=== PATIENT | male | born 1935 | race Caucasian/White ===

== ENCOUNTER 2016-06-22 21:45 | Observation (INO) | payer MEDICARE, OTHER ==
[~2016-06-22] VITALS: Ht 177.8 cm; Wt 93.7 kg
[~2016-06-22 21:45] MED LIST: ASPI325T32 PO; AZIT250T4 PO; BROM2.5T2 PO; CLOP75TA28 PO; EZET10TA PO; GABA600T2 PO; HYDR20TA2 PO; LATA2.5D6 RIGHT_EYE; LEVO75TA4 PO; OMEG1CAP2 PO; TAM75UDCAP PO; TAMS0.4C98 PO
[2016-06-22 21:47] VITALS: PULSE 50; RESP 16; O2SAT 94
[2016-06-22 22:00] VITALS: BP 118/66; PULSE 114; RESP 18; O2SAT 96
[2016-06-22 22:15] VITALS: BP 104/59; PULSE 66; RESP 14; O2SAT 96
[2016-06-22 22:17] LABS: BASOPHILS % (AUTO) 0.5 % (0-3); EOSINOPHILS % (AUTO) 2.5 % (0-5); MONOCYTES % (AUTO) 7.9 % (4-12); Mean Corpuscular Hemoglobin 31.6 pg (27.0-35.0); Mean Corpuscular Volume 91.6 fL (81-100); NEUTROPHILS % (AUTO) 48.7 % (40-74); Platelet Count 148 bil/L (150-400)
[2016-06-22] MEDS ORDERED: 0.9% Sodium Chloride 1,000 ML IV ONE (22:35)
[2016-06-22 22:38] LABS: TROPONIN T 0.01 ug/L (0.0-0.011)
--- NOTE | 2016-06-22 22:44 | ED.REPORT ---
HPI-Chest Pain 40 and Over Date of Service Jun 22, 2016 ED Provider: West Escobar MD Pt is an 80 year old male with a hx of CAD, HTN, afib, TIA and cardiac stents placed 8 months ago presenting to the ED complaining of chest pain and rapid heart rate onset 1 hour ago now resolved. He reports previous similar symptoms one time about 1 year ago. His does not report that the pt looks more pale than normal. He denies hx of problems with his aorta or being on blood thinners. Pt took 2 Aspirin and 1 nitro prior to arrival. Nursing Notes Stated Complaint: CHEST PAIN Chief Complaint: Chest Pain Nursing Notes Reviewed: Yes Allergies: Coded Allergies: dabigatran etexilate (Verified Allergy, Severe, headache, 06/23/16) gemfibrozil (Verified Allergy, Intermediate, 06/23/16) pt does not remember this as an allergy atorvastatin (Verified Allergy, Mild, 06/23/16) Scheduled Aspirin (Aspirin) 325 Mg Tablet.dr 325 MG PO AM Bromocriptine Mesylate (Bromocriptine Mesylate) 2.5 Mg Tablet 2.5 TAB PO DAILY Clopidogrel (Clopidogrel) 75 Mg Tablet 75 MG PO DAILY Ezetimibe (Zetia) 10 Mg Tablet 10 MG PO DAILY Gabapentin (Gabapentin) 600 Mg Tablet 600 MG PO HS Hydrocortisone (Hydrocortisone) 20 Mg Tablet 20 MG PO AM Latanoprost (Latanoprost) 2.5 Ml Drops 1 GTT RIGHT_EYE HS Levothyroxine (Levothyroxine) 75 Mcg Tablet 75 MCG PO AM [place]-3 Acid Ethyl Esters (Lovaza) 1 Gm Capsule 1 GM PO BID Tamsulosin (Flomax) 0.4 Mg Capsule 0.4 MG PO BID General Time Seen by MD: 21:55 Chief Complaint Chest pain Hx Obtained From: Patient Arrived By: Walk-in Sudden in Onset?: Yes Onset Occurred: 1 - 4 hours ago Symptom Duration: 1 - 4 hours Quality: Painful Radiation: : Does not radiate Migration/Movement: Reports: None Severity: Current: No pain currently Severity: Maximum: Moderate Recent Healthcare: No recent doctor visit, No recent hospitalization, Previous surgery Similar Sx Previous: Yes Risk Factors )( CAD Risk Stratification Hypertension Known CAD Risk factors reviewed )( TAD Risk Stratification Hypertension Risk factors reviewed Past Medical History Past Medical History CAD Hypertension Atrial fibrillation TIA Tachy dang syndrome Hx pituitary adenoma Low back pain Cataracts Past Surgical History ankle replacement cardiac catheterization cardiac stents placed 8 months ago Reports: Appendectomy Smoking History Former Smoker Social History Alcohol Use: "Social" Drug Use: Denies drug use Ambulatory Status Independent Review of Systems Respiratory: Denies: Shortness of breath, Wheezing Cardiovascular: Reports: Chest pain GI: Denies: Vomiting Complete sys rev & neg: except as marked. Physical Exam Initial Vital Signs Vital Signs (First) Date Time Temp Pulse Resp B/P Pulse Ox O2 Delivery O2 Flow Rate FiO2 06/22/16 21:47 36.1 50 16 94 Room Air 06/22/16 22:00 118/66 Initial VS: Reviewed, Vital signs normal Head / Eyes: Atraumatic, Normocephalic, PERRL ENT: Mucous membranes moist, Conjunctiva normal, No scleral icterus Neck: Supple, Non-tender, Full range of motion Skin: Warm, Dry, No cyanosis Neurologic: Alert, Oriented, Nonfocal Psychiatric: Mood/affect normal, Behavior normal, Normal thought content General/Constitutional: Awake, Alert, No acute distress Appearance / Presentation: Positive: Pale Respiratory / Chest: No respiratory distress Cardiovascular: Heart rate NL, Regular rhythm, Heart sounds NL, No murmurs Good femoral pulses Abdomen: Atraumatic, Soft, Non-tender, No palpable mass, No pulsatile mass Upper Extremity / MS: Atraumatic, Full range of motion, Neurologic intact, Vascular intact Extremities cool but not cold or clammy. Interpretation & Diagnostics Lab Results Interpretation Result Diagram: 06/22/16219906/22/16 220 Test 06/22/16 22:00 White Blood Count 8.3th/mm3 (3.8-10.1) Red Blood Count 4.53mil/mm3 (4.40-5.80) Hemoglobin 14.3g/dL (13.8-17.2) Hematocrit 41.5% (41.0-50.0) Mean Corpuscular Volume 91.6fL (81-100) Mean Corpuscular Hemoglobin 31.6pg (27.0-35.0) Mean Corpuscular Hemoglobin Concent 34.5% (32.0-37.0) Red Cell Distribution Width 14.1% (12.3-15.4) Platelet Count 148bil/L (150-400) Neutrophils (%) (Auto) 48.7% (40-74) Lymphocytes (%) (Auto) 40.3% (14-46) Monocytes (%) (Auto) 7.9% (4-12) Eosinophils (%) (Auto) 2.5% (0-5) Basophils (%) (Auto) 0.5% (0-3) Prothrombin Time 10.7sec (8.1-12.5) Prothromb Time International Ratio 1.00ratio Sodium Level 141mEq/L (134-144) Potassium Level 4.6mEq/L (3.5-5.2) Chloride Level 102mEq/L (97-108) Carbon Dioxide Level 25mmol/L (18-29) Blood Urea Nitrogen 18mg/dL (8-27) Creatinine 1.28mg/dL (0.76-1.27) Estimat Glomerular Filtration Rate 57mL/min (>59) Glucose Level 114mg/dL (60-99) Calcium Level 9.2mg/dL (8.5-10.1) Magnesium Level 1.9mg/dL (1.6-2.6) Total Bilirubin 0.3mg/dL (0.0-1.2) Aspartate Amino Transf (AST/SGOT) 23U/L (0-50) Alanine Aminotransferase (ALT/SGPT) 14U/L (0-44) Alkaline Phosphatase 38U/L (25-160) Troponin T 0.010ug/L (0.0-0.011) Total Protein 7.0g/dL (6.4-8.4) Albumin 4.2g/dL (3.4-5.0) Thyroid Stimulating Hormone (TSH) 0.214uIU/mL (0.450-4.500) Free Thyroxine 0.89ng/dL (0.82-1.77) Hold Kennedy Top Tube Received (Received) Lab values outside NL range: no clinical significance. Lab Results Interpretation: No anemia ECG Interpretation ECG Interpretation: Atrial fibrillation flutter. Rate 118. Time: 21:58 Interpreted by: ED physician ECG Interpretation: Nonspecific intraventricular conduction delay. Nonspecific T abnormalities, lateral leads. Time: 22:08 Interpreted by: ED physician Normal ECG Interpretation: Normal rate (61), Normal sinus rhythm ECG Interpretation: Old inferior infarct. Rate 58. Time: 22:47 Interpreted by: ED physician Normal ECG Interpretation: Normal sinus rhythm X-Ray Chest Interpretation Chest Xray Interpretation: Normal chest x ray. Widening mediastinum. Interpretation / Wet Read by: Wet read ED physician CT Abd / Pelvis Interpretation CONCLUSION: No acute vascular process. Areas of parenchymal scarring in both kidneys. Correlate with history. Small mural nodule in the bladder on the left. Cystoscopy to exclude an endothelial tumor may be indicated. Mild prostatic enlargement. This report was transmitted to the emergency room at 06/22/2016 - 11:38:34 PM PST. Re-Eval/Medical Decision Med Decision/Clinical Course 80-year-old male who presents with rapid heart rate and chest pain. He was originally quite pale. He converted to sinus rhythm and his chest pain went away. However he dropped his pressure into the 40-60 range momentarily. He was given fluids which brought brought it up into the mid 80s. He was typed and crossed for 2 units of packed cells but his H&H came back normal and there was no evidence of blood loss. CT angiogram of the chest abdomen pelvis was done which showed no abnormalities of the great vessels. He does have a possible bladder tumor. His blood pressure stabilized in the 100 range without pressors. His heart rate went down as low as the high 30s on a couple of occasions, asymptomatic. This case was discussed with Dr. Hercules and he will be admitted to the hospitalist service. Please see patient's chart for details. Time of Eval: 22:41 Patient Status: Condition improved Re-Evaluation/Progress Note: BP is 66/43, HR is 59. Time of Eval: 23:31 Patient Status: Condition improved Re-Evaluation/Progress Note: BP: 84/59 HR: 50 Time of Eval: 23:57 Patient Status: Condition improved Re-Evaluation/Progress Note: Discussed plan for admission. Pt understands and agrees. Consultation : Referral / Consult Name: Jac Hercules MD Consulted With: Hospitalist Call Returned at: 00:18 Icebox Man: Will see patient, Agrees with plan, Accepts admit Counseled Regarding: Diagnosis, Lab results, Need for follow-up, When/why to return to ED Discharge & Departure Primary Impression: Atrial fibrillation Atrial fibrillation type: paroxysmal Qualified Code: I48.0 - Paroxysmal atrial fibrillation Additional Impressions: Hypotension Hypotension type: unspecified hypotension type Qualified Code: I95.9 - Hypotension, unspecified Bradycardia Disposition: ADMITTED TO HOSPITAL Discharge Condition All VS Reviewed: Yes Condition: Improved Referrals: Ellen Hernandez (PCP) Crit Care Except Billable Proc Time Spent: 30-74 minutes Services Performed: Patient management by me, Time spent at bedside, Reviewing test results, Reviewing imaging, Discussing patient care, Documentation in record Critical Care Notes: 80-year-old male with rapid heart rate followed by bradycardia into the 30s. He was hypotensive and required aggressive fluid resuscitation but no pressors. He was admitted to the [facility] for further evaluation. Scribe Attestation Portions of this note were transcribed by Estelita Zuniga. I, Dr. Escobar personally performed the history, physical exam and medical decision-making; I reviewed and confirmed the accuracy of the information in the transcribed note. Signed by: Ernie Uribe, 06/23/2016 and 0021. copies to: Ellen Hernandez Howard L MD Jun 22, 2016 22:44 ESTELITA ZUNIGA Jun 22, 2016 22:51
[2016-06-22 22:50] LABS: Magnesium 1.9 mg/dL (1.6-2.6)
[2016-06-23] VITALS (9 sets, daily range): BP systolic 95–127; BP diastolic 54–67; PULSE 45–52; RESP 13–17; O2SAT 94–99
[2016-06-23] MEDS ORDERED: Ondansetron 2 mg/mL 2 mL Inj IVPUSH PRN (00:25)
[2016-06-23] MEDS ORDERED: Polyethylene Glycol (PEG) 17 Gm Powder PO PRN (00:25)
[2016-06-23] MEDS ORDERED: Alum-Mag Hydrox-Simeth 30 mL Suspension PO PRN (00:25)
[2016-06-23] MEDS: 0.9% Sodium Chloride 1,000 ML IV SCH ×2 (00:45→10:23)
[2016-06-23 03:50] LABS: APPEARANCE,URINE CLEAR (CLEAR,HAZY); COLOR,URINE YELLOW (YELLOW); OCCULT BLOOD,URINE MODERATE (NEGATIVE); UROBILINOGEN,URINE NORMAL (NORMAL)
--- NOTE | 2016-06-23 04:18 | PCM.HPMED ---
Subjective Date of Service Jun 23, 2016 Primary Provider: Admitting Physician: Primary Care Physician: Ellen Hernandez Attending Physician: Admit Status: From the Emergency Department, 23-Hour Observation, Remote Telemetry Chief Complaint: Chest pain History of Present Illness: Reuben Powell is an 80 year old male with Coronary artery disease s/p stenting , Hypertension, Chronic Atrial fibrillation presenting to [facility] emergency department complaining of chest pain and rapid heart rate onset 1 hour ago now resolved. Patient described chest pain as left sided, pressure. 8/10 intensity without any radiation. Denies any diaphoresis, nausea or dyspnea. Some similarity to his previous heart attacks. Pt took 2 Aspirin and 1 nitro prior to arrival with some relief. He reports previous similar symptoms one time about 1 year ago. His does report that the pt looks more pale than normal. He reports compliance with medications and closely follows up with Dr Castro. Case discussed with Dr Escobar, imaging showed no dissection. Weird rhythm changes noted with tachycardia then dang cardia with hypotension. Patient denies any persistent chest pain since arriving. Review of Systems: Pertinent positives as noted in HPI. All other systems were reviewed and are negative Allergies Coded Allergies: dabigatran etexilate (Verified Allergy, Severe, headache, 06/23/16) gemfibrozil (Verified Allergy, Intermediate, 06/23/16) pt does not remember this as an allergy atorvastatin (Verified Allergy, Mild, 06/23/16) Home Medications From [facility], not yet confirmed Reuben Powellmont. [id number] 06/20/2016 08:45 AM Page: 05/16 Aspir-81 81 mg tablet,delayed release take 1 tablet by oral route every day bromocriptine 2.5 mg tablet take 1 tablet by oral route every day with food Cialis 20 mg tablet take 1 tablet by oral route every day clopidogrel 75 mg tablet take 1 tablet by oral route every day desonide 0.05 % topical cream apply by topical route 2 times every day sparingly and rub gently into the affected area(s) Flomax 0.4 mg capsule TAKE 1 CAPSULE BY MOUTH TWICE A DAY gabapentin 600 mg tablet take 1 tablet by oral route every night at bedtime hydrocortisone 20 mg tablet take 1 tablet by oral route every day with food levothyroxine 75 mcg tablet take 1 tablet by oral route every day [place]-3 2 twice a day Viagra 100 mg tablet take 1 tablet by oral route every day as needed approximately 1 hour before sexual activity Xalatan 0.005% 1 drop in eye in the evening Zetia 10 mg tablet take 1 tablet by oral route every day for high cholesterol. PMH Paroxysmal atrial fibrillation ASCVD, heart cath 2010 50-60% stenosis RCA, cath 07/2015 80% and 90% LAD stenosis , 80% circumflex stenosis, RCA occluded proximally Hypertension Hyperlipidemia H/o pituitary adenoma BPH Hypothyroidism Glaucoma . Surgical History Cardiac cath: complex intervention at [facility] to revascularize occluded right coronary artery. 3.5 x 38 mm Synergy drug-eluting stent was deployed distally, 3.5 x 38 mm Synergy drug-eluting stent was deployed in the midportion of right coronary artery and 3.5 x 12 mm Synergy stent was deployed in the proximal right coronary artery. 4 mm balloon was used to post dilate proximally. 2 mm balloon was used to intervene on right posterior lateral branch. Family History Brother: passed at age 81 d/t blood clots Social History Hx Alcohol Use: Yes (very little ) Hx Substance Use: No Hx Tobacco Use: Yes (Quit "many many years ago") Smoking Status: Former Smoker Exam Vital Signs Vital Sign - Last Date Time Temp Pulse Resp B/P Pulse Ox O2 Delivery O2 Flow Rate FiO2 06/23/16 00:05 45 17 95/54 96 Room Air 06/22/16 21:47 36.1 Intake and Output 06/22/16 06/22/16 06/23/16 Cumulative From/Thru 15:00 23:00 07:00 06/22/16 21:47 - 06/22/16 23:17 Intake Total 1000 ml 1000 ml Balance 1000 ml 1000 ml Intake IV Total 1000 ml 1000 ml Exam General: Alert, Oriented X3, Cooperative, No acute Distress Eyes: PERRLA, Scleral Anicteric Mouth: Mouth Normal, Mucous Membranes Moist/[place] Neck: Supple, no Thyromegaly, trachea central. Chest & Lungs: Clear to auscultation & percussion, No adventitious breath sounds, no crackles, no wheeze Cardiovascular: Normal S1, Normal S2, No Murmurs/Rubs/Gallops, irregularly irregular, (No JVD, no peripheral edema) Pulses: Radial (present and equal), Dorsalis Pedi (present and equal) Abdomen: Soft, Non-tender, Non-distended, Normoactive bowel tones. Musculoskeletal: Unremarkable. Normal range of motion, no swollen or erythematous joints Extremities: No edema, no cyanosis, no clubbing. Skin: No rashes. Warm and dry, no erythematous areas Neurological: Grossly neurologically intact, Normal Speech, Sensation Intact Lymphatic: Lymph nodes Cervical and Axillary not palpable. Lab and Diagnostics Labs Laboratory Tests Test 06/22/16 22:00 White Blood Count 8.3th/mm3 (3.8-10.1) Red Blood Count 4.53mil/mm3 (4.40-5.80) Hemoglobin 14.3g/dL (13.8-17.2) Hematocrit 41.5% (41.0-50.0) Mean Corpuscular Volume 91.6fL (81-100) Mean Corpuscular Hemoglobin 31.6pg (27.0-35.0) Mean Corpuscular Hemoglobin Concent 34.5% (32.0-37.0) Red Cell Distribution Width 14.1% (12.3-15.4) Platelet Count 148bil/L (150-400) Neutrophils (%) (Auto) 48.7% (40-74) Lymphocytes (%) (Auto) 40.3% (14-46) Monocytes (%) (Auto) 7.9% (4-12) Eosinophils (%) (Auto) 2.5% (0-5) Basophils (%) (Auto) 0.5% (0-3) Prothrombin Time 10.7sec (8.1-12.5) Prothromb Time International Ratio 1.00ratio Sodium Level 141mEq/L (134-144) Potassium Level 4.6mEq/L (3.5-5.2) Chloride Level 102mEq/L (97-108) Carbon Dioxide Level 25mmol/L (18-29) Blood Urea Nitrogen 18mg/dL (8-27) Creatinine 1.28mg/dL (0.76-1.27) Estimat Glomerular Filtration Rate 57mL/min (>59) Glucose Level 114mg/dL (60-99) Calcium Level 9.2mg/dL (8.5-10.1) Magnesium Level 1.9mg/dL (1.6-2.6) Total Bilirubin 0.3mg/dL (0.0-1.2) Aspartate Amino Transf (AST/SGOT) 23U/L (0-50) Alanine Aminotransferase (ALT/SGPT) 14U/L (0-44) Alkaline Phosphatase 38U/L (25-160) Troponin T 0.010ug/L (0.0-0.011) Total Protein 7.0g/dL (6.4-8.4) Albumin 4.2g/dL (3.4-5.0) Hold Kennedy Top Tube Received (Received) Result Diagram: 06/22/16219906/22/162199 X-Rays, CTs and MRIs X-Ray Chest Interpretation 06/22 Chest Xray Interpretation: Normal chest x ray. Interpretation / Wet Read by: CT Abd / Pelvis Interpretation 06/22 CONCLUSION: No acute vascular process. Areas of parenchymal scarring in both kidneys. Correlate with history. Small mural nodule in the bladder on the left. Cystoscopy to exclude an endothelial tumor may be indicated. Mild prostatic enlargement. Assessment & Plan Reuben Andre is an 80 year old male with Coronary artery disease s/p stenting , Hypertension, Chronic Atrial fibrillation presenting to [facility] emergency department complaining of chest pain and palpitations. 1. Atrial fibrillation with rapid ventricular response with bradycardia. Present on admission -patient with history of paroxysmal atrial fibrillation however has not had difficulties since 2010. Tachy dang syndrome is a possibility. Patient no currently on any beta tawana due to bradycardia. Thyroid disease could cause both tachy and bradycardia - monitor on telemetry - trending troponin overnight - checking TSH - complete echo in the morning - consider Cardiology (EPS) consultation if continues to have rhythm changes overnight 2. Acute Hypotension. Present on admission suspect Hypovolemia given improvement with IV fluids bolus. I wonder if the patient is using nitro with his Cialis which may cause some drop in Blood pressure. Patient on chronic steroids with risk for Adrenal insufficiency. No evidence of infection - continue IV fluids - avoid antihypertensive at least for tonight - consider random cortisol levels if indicated 3. Acute Chest pain. Present on admission Likely related to tachycardia which is now resolved - trending troponin 4. Coronary artery Disease s/p drug eluting stent - continue Aspirin and Plavix for antiplatelet therapy - continue Zetia (allergic to Atorvastatin) 5. Hyperlipidemia No evidence of liver dysfunction - continue Zetia 6. Pituitary adenoma with testicular hypofunction, Chronic - continue Bromocriptine - continue Hydrocortisone 20 mg daily, no indication for stress dose steroids - recommend follow up with Endocrinology as outpatient 7. Hypothyroidism - continue Synthroid 75 mcg daily, question compliance - checking TSH 8. Benign Prostatic Hypertrophy with outflow obstruction - continue Flomax - Acetaminophen as needed for mild pain/fever/headache - Bowel regimen as needed - Antiemetic as needed Patient admitted under inpatient status with expected length of stay > 2 midnights for severity of present symptoms, complexities of treatment plan and risk for adverse event . Resuscitation Status: CPR: Attempt Resuscitation Jac Hercules MD Jun 23, 2016 00:34
--- NOTE | 2016-06-23 05:40 | NUR ---
Admit/Med Rec Pt admitted to room 2000 around 0200, report from ED RN, lex MD at room during admission. Pt able to transfer self from gurney to bed by scooting, understands he is to be bedrest at this time. Pt denied any chest pain and appeared comfortable. Pt oriented to room and able to answer admission questions. Tele SBrady 40s. Pt denies symptoms. SBP low 100s. Med rec done via external med Hx as pt has vague idea of names of meds and does not know doses. Pt states will bring updated med list in the morning to confirm medications.
--- NOTE | 2016-06-23 05:45 | NUR ---
Tele Tele continues mostly SB 40s w/ occasional dips to high 30s, not sustaining. Pt denies chest pain or symptoms from bradycardia. Pt remains bedrest.
--- NOTE | 2016-06-23 07:18 | DRSVH ---
PROCEDURE: X-RAY CHEST ONE VIEW, PORTABLE ([id number]) INDICATIONS: chest pain TECHNIQUE: One view of the chest was acquired. COMPARISON: [facility], CR, XR CHEST 1VW (PORTABLE), 05/09/2016, 18:19. FINDINGS: Surgical changes and devices: None. Lungs and pleura: No pleural effusions or pneumothorax. Lungs are clear. Mediastinum: Mediastinal contours appear normal. Heart size is normal. Bones and chest wall: No suspicious bony lesions. Overlying soft tissues appear unremarkable. IMPRESSION: No acute disease Dictated by: Jarett Hawthorne M.D. on 06/23/2016 at 7:17 Approved by: Jarett Hawthorne M.D. on 06/23/2016 at 7:18
--- NOTE | 2016-06-23 07:42 | DRSVH ---
PROCEDURE: CT ANG CHEST/ABD/PEL W/WO CIBTRAST ([id number]) INDICATIONS: chest pain, hypotension TECHNIQUE: Precontrast 5 mm thick sections acquired from the lung apices to the iliac crests. After the adminis tration of intravenous contrast, 3 mm thick sections again acquired from the lung apices to the iliac crests. 3-dimensional maximum intensity projection (MIP) oblique sagittal and coronal reformats wer e then acquired, and/or 3-dimensional volume rendering reformats. For radiation dose reduction, the following was used: automated exposure control. COMPARISON: None. FINDINGS: Image quality: Excellent. AORTA: No evidence of aneurysm or dissection. No periaortic hematoma identified. CHEST: Lungs and pleura: No acute consolidation. There is scarring/atelectasis No pleural effusions or pne umothorax. Central and peripheral airways are patent and normal in caliber. Mediastinum: Heart size is mildly enlarged. No pericardial effusion. No mediastinal or hilar adeno peyton by size criteria. Central pulmonary arteries are normal in size. No evidence of pulmonary embo lism. Esophagus is normal in caliber. No hiatal hernias. Bones and chest wall: No axillary adenopathy by size criteria. Thyroid gland negative. No suspicio us bony lesions. Age-indeterminate lower thoracic spine compression fractures. ABDOMEN: Vasculature: Celiac trunk and mesenteric arteries are patent. Renal arteries are also patent. Solid organs: Liver and spleen are normal in size. There are nonspecific hepatic calcifications. Ga llbladder unremarkable. Biliary system is non dilated. Pancreas enhances normally. No adrenal nodu les. Bilateral renal scarring and atrophy. No hydronephrosis. Peritoneum and bowel: No free fluid or air. Bowel loops are normal in caliber and wall thickness. Appendix not definitely visualized. Nodes and vessels: No retroperitoneal or mesenteric adenopathy by size criteria. Inferior vena cava is normal in morphology. Bones: No suspicious bony lesions. No vertebral body compression fractures. Miscellaneous: No ventral hernias. PELVIS: 5 mm left bladder wall nodule noted. No pelvic lymphadenopathy. Rectum grossly unremarkable. Prostate mildly enlarged IMPRESSION: 5 mm left bladder wall nodule. This could represent early bladder carcinoma. Recommend further assess ment with cystoscopy as clinically warranted. Elsewhere, no aortic aneurysm or dissection. Bilateral renal scarring and atrophy. Mild enlarged prostate. No acute pulmonary consolidation Additional chronic and incidental findings as above. Dictated by: Jarett Hawthorne M.D. on 06/23/2016 at 7:28 Approved by: Jarett Hawthorne M.D. on 06/23/2016 at 7:42
[2016-06-23] MEDS ORDERED: OXYM30SP18 NS (10:01)
[2016-06-23] MEDS ORDERED: ASPI-973 PO (10:01)
--- NOTE | 2016-06-23 10:25 | NUR ---
Social Work Note: Initial Assessment Data& Assessment: EMR reviewed. SW met with pt and pt Milla ([phone]) regarding discharge planning, SW role explained. SW phone number provided on pt whiteboard. Reuben Duvall is a 80 year old male under observation beginning today 06/23/2016 for AFIB. Pt has Medicare and [facility] Supplemental insurance coverage. Pt PCP is Ellen Hernandez MD. Pt lives in [place] with his and is independent at baseline. Pt and pt live in a one story home with one step to enter the home. Pt drives and does not require any DME at baseline. Pt has never had Home Health services and has never been to a SNF in the past. Pt is a with the [facility] but is not service connected. Pt does not have LTC insurance. Pt has DPOA paperwork completed at home, SW requested pt provide the hospital with a copy when possible. Pt plans to transport pt home when medically ready. Pt and pt denies any other needs at this time. SW to continue to follow if any needs arise. Plan: Anticipated discharge home via POV when medically ready. Pt and pt denies any other needs at this time. SW to continue to follow if any needs arise. JULEE Galicia Addendum: 06/23/16 at 1058 by EDI GOLDMAN Amended: Links added.
[2016-06-23] MEDS ORDERED: Hydrocortisone 10 mg Tablet PO SCH (11:40)
--- NOTE | 2016-06-23 11:44 | NUR ---
ROLF explained, signed. Copy of ROLF and Medicare self administered medications given to pt.
--- NOTE | 2016-06-23 12:09 | DRSVH ---
[facility] [address] [place] [address] Echocardiogram Report Name: HUGH IRVIN BStudy Date: 06/23/2016 Height: 70 in Hospital Exam Location: [facility] Weight: 207 lb Gender: Male BSA: 2.1 m2 : 1935 Age: 80 yrs BP: 117/64 mmHg Reason For Study: HYPOTENSION Performed By: Zeke Vazquez Referring Physician: MELITON EMERY Interpretation Summary 1) Normal left ventricular thickness, size, wall motion, and systolic function (EF 60-65%). 2) Normal right ventricular size and function. 3) Mild to moderate mitral regurgitatoin present. 4) Mildly dilated ascending aorta (diameter 4cm). 5) No significant change compared to the prior echo dated 07/11/2015. Procedure: A two-dimensional transthoracic echocardiogram with color flow and Doppler was performed. The study quality was technically adequate. Comparison is made with the echocardiogram of 07/11/15. The patient was in sinus bradycardia with heart rates between 45-56 bpm during the exam. Left Ventricle: The left ventricle is normal in size. There is normal left ventricular wall thickness. The ejection fraction is estimated to be 60-65%. There are no focal wall motion abnormalities. Assessment of diastolic parameters indicates a relaxation abnormality of the left ventricle, consistent with normal filling pressures. Right Ventricle: The right ventricle grossly appears normal in size with probable normal systolic function. Atria: The left atrium is moderately dilated. The right atrium is mildly dilated. The interatrial septum is intact with no evidence for an atrial septal defect. Mitral Valve: The mitral valve leaflets are slightly calcified. There is moderate mitral annular calcification. There is mild to moderate mitral regurgitation. Aortic Valve: The aortic valve is trileaflet. The aortic valve is mildly calcified. There is no aortic valve stenosis. No aortic regurgitation is present. Tricuspid Valve: The tricuspid valve is normal. There is mild tricuspid regurgitation. The right ventricular systolic pressure is estimated at 26 mmHg assuming a right atrial pressure of 8 mm Hg. Pulmonic Valve: The pulmonic valve leaflets are thin and pliable; valve motion is normal. There is a trace or physiologic amount of pulmonic regurgitation. Great Vessels: The aortic root is normal size. The ascending aorta is mildly enlarged. The pulmonary artery is normal size. The IVC is dilated (diameter is greater than 2.1 cm) yet it collapses greater than 50% with a sniff. This suggests a right atrial pressure of 8 mm Hg. Pericardium/ Pleura There is no pericardial effusion. There is no pleural effusion. MMode/2D Measurements & Calculations LVIDd: 4.7 cm RA long axis LVOT diam: 2.4 cm LVIDs: 3.6 cm LA A2 area: 23.8 cm AoV Opening FS: 25.1 % LA A4 area: 23.6 cm RA area EPSS: 0.48 cm LA length (vol) Ao root diam IVSd: 1.0 cm : 19.5 cm LVPWd: 0.89 cm LA vol: 85.1 ml RA vol asc Aorta Diam LA vol index : 62.2 ml RA Ao Arch Diam (Prox : 29.3 mm2 Trans): 3.0 cm IVC diam: 2.3 cm LV stanley. diameter/BSA LV sys. diameter/BSA RVD1 (basal) TAPSE: 2.0 cm (cm/m^2): 2.2 (cm/m^2): 1.7 Doppler Measurements & Calculations Ao V2 max: 108.8 cm/secMV E max neal MV E/A: 1.1 TR max neal Ao max P.7 mmHg : 60.1 cm/sec Med Peak E' Neal : 215.1 cm/sec Ao mean P.6 mmHg MV A max neal TR max PG LVOT Max Neal : 55.2 cm/sec E/E' med: 11.6 : 18.5 mmHg : 98.1 cm/sec Lat Peak E' Neal PA V2 max : 59.0 cm/sec TIM(I,D): 3.8 cm E/E' lat: 9.7 PA mean PG sev ratio: 0.81 E/e' average : 1.0 mmHg MV A dur: 0.18 sec MV dec time: 0.27 sec Ao V2 mean LV V1 max PG PA V2 mean : 77.3 cm/sec : 50.7 cm/sec Ao V2 VTI LV V1 VTI: 22.0 cmPA pr(Accel) : 24.5 mmHg TIM(V,D): 4.2 cm2 TIM indexed to BSA (cm^2/m^2): 1.8 Reading Physician:12:08 PM
--- NOTE | 2016-06-23 13:06 | NUR ---
PT eval discontinued per physician request, given no identified PT needs at this time.
--- NOTE | 2016-06-23 13:07 | PCM.CHPCAR ---
Consult Subjective Date of service Jun 23, 2016 Date of admit Jun 23, 2016 at 01:18 Provider Requesting Consult Requesting Provider: Jewel Soni MD Primary Care Physician Primary Care Provider: Ellen Hernandez Chief Complaint Chest pain, atrial fibrillation History of Present Illness 80 yo M CAD s/p complex interventions of the LAD and RCA in 2016, HTN, HLD, paroxysmal AF, and TIA admitted with chest pain. Patient states that he was in usual state of health until yesterday when he leaned over to make his dog's bed and developed chest pain and heart racing sensations. It felt similar to his prior AF, which he has every few months. He came to the ER and was to have AF with RVR with heart rates in the 110s. Prior to being admitted to the hospital , patient's symptoms mostly resolved. He was then noted to have mild sinus bradycardia into the 40s and mildly low SBP in the 90s. BP improved with IVFs. Since being admitted to the hospital, patient feels good and back to his baseline and wants to go home. At baseline, patient states that he is active for his age and is able to climb two flights of stairs without much difficulty. He does report chronic fatigue. Denies lightheadedness or syncope. Review of Systems Review of Systems per HPI and otherwise unremarkable PMH Past Medical History # CAD s/p complex intervention of the LAD and RCA 2016 # Paroxysmal AF # Sinus bradycardia # Hyperlipidemia, severe # Pituitary adenoma Scheduled Aspirin (Aspirin) 325 Mg Tablet. 325 MG PO AM (Reported) Aspirin (Aspirin) 81 Mg Tablet 81 MG PO DAILY (Reported) Bromocriptine Mesylate (Bromocriptine Mesylate) 2.5 Mg Tablet 2.5 TAB PO DAILY ( Reported) Clopidogrel (Clopidogrel) 75 Mg Tablet 75 MG PO DAILY (Reported) Ezetimibe (Zetia) 10 Mg Tablet 10 MG PO DAILY (Reported) Gabapentin (Gabapentin) 600 Mg Tablet 600 MG PO HS (Reported) Hydrocortisone (Hydrocortisone) 20 Mg Tablet 20 MG PO AM (Reported) Latanoprost (Latanoprost) 2.5 Ml Drops 1 GTT RIGHT_EYE HS (Reported) Levothyroxine (Levothyroxine) 75 Mcg Tablet 75 MCG PO AM (Reported) [place]-3 Acid Ethyl Esters (Lovaza) 1 Gm Capsule 1 GM PO BID (Reported) Tamsulosin (Flomax) 0.4 Mg Capsule 0.4 MG PO BID (Reported) Miscellaneous Medications Oxymetazoline HCl (Nasal [place] Sinus) 30 Ml [place] 30 ML NS (Reported) Discontinued Medications Azithromycin (Zithromax (Z-Andreas)) 250 Mg Tablet 250 MG PO DIRECTED Take two tablets by mouth on day 1, then take one tablet daily on days 2 through 5. Oseltamivir Phosphate (Tamiflu) 75 Mg Capsule 75 MG PO BID Current Inpatient Medications Current Medications Sodium Chloride 1,000 ml @ 100 mls/hr Q10H IV Last administered on 06/23/16t 00 :45; Admin Dose 100 MLS/HR; Start 06/23/16 at 00:23 Al Hydrox/Mg Hydrox/Simethicone 30 ml Q6H PRN PO; Start 06/23/16 at 00:25 Ondansetron HCl 4 to 8 mg Q4H PRN IVPUSH; Start 06/23/16 at 00:25 Senna 17.2 mg BID PRN PO; Start 06/23/16 at 00:25 Polyethylene Glycol 17 gm DAILY PRN PO; Start 06/23/16 at 00:25 Acetaminophen 650 mg Q4H PRN PO; Start 06/23/16 at 00:25 Aspirin 81 mg DAILY PO; Start 06/23/16 at 11:40 Clopidogrel Bisulfate 75 mg DAILY PO; Start 06/23/16 at 11:40 Tamsulosin HCl 0.4 mg BID PO; Start 06/23/16 at 20:30 Gabapentin 600 mg HS PO; Start 06/23/16 at 21:00 EZETIMIBE 10 mg DAILY PO; Start 06/23/16 at 11:40 Hydrocortisone 20 mg DAILY PO; Start 06/23/16 at 11:40 Bromocriptine Mesylate 6.25 mg DAILY PO; Start 06/23/16 at 11:40 Allergies: Coded Allergies: dabigatran etexilate (Verified Allergy, Severe, headache, 06/23/16) gemfibrozil (Verified Allergy, Intermediate, 06/23/16) pt does not remember this as an allergy atorvastatin (Verified Allergy, Mild, 06/23/16) Family History Family History Mother at age 75 and had LA Social History Hx Alcohol Use: Yes (very little )Hx Substance Use: NoHx Tobacco Use: Yes ( Quit "many many years ago") Smoking Status: Former Smoker Exam Vital Signs Vital Sign - Last Date Time Temp Pulse Resp B/P Pulse Ox O2 Delivery O2 Flow Rate FiO2 06/23/16 12:00 36.6 45 14 127/67 94 Room Air Intake and Output 06/22/16 06/22/16 06/23/16 Cumulative From/Thru 15:00 23:00 07:00 06/22/16 21:47 - 06/23/16 06:10 Intake Total 1374 ml 1374 ml Output Total 200 ml 200 ml Balance 1174 ml 1174 ml Intake Oral 0 ml 0 ml IV Total 1374 ml 1374 ml Output Urine Total 200 ml 200 ml # Bowel Movements 0 0 Objective General appearance: No apparent distress, elderly, well-nourished, pleasant, cooperative HEET: Normocephalic atraumatic, no scleral icterus, tongue midline, mucous membranes moist Neck: supple Cardiovascular: RRR, normal S1 and normal S2, no murmurs/ rubs/gallops, PMI nondisplaced, no JVD, no peripheral edema Respiratory: Good aeration, CTAB Abdomen: Soft, nontender, nondistended, + bowel sounds Neuro: Alert, no facial droop, tongue midline, no gross motor deficits Psych: appropriate affect Skin: no rashes on face, neck, and lower extremities Lab and Diagnostics Labs Troponin negative X2 Result Diagram: 06/22/16219906/22/162199 X-Rays, CTs and MRIs Echo 06/23/2016: 1) Normal left ventricular thickness, size, wall motion, and systolic function (EF 60-65%). 2) Normal right ventricular size and function. 3) Mild to moderate mitral regurgitation present. 4) Mildly dilated ascending aorta (diameter 4cm). 5) No significant change compared to the prior echo dated 07/11/2015. CT abdomen/pelvis 06/22/2016: 5 mm left bladder wall nodule. This could represent early bladder carcinoma. Recommend further assessment with cystoscopy as clinically warranted. Elsewhere, no aortic aneurysm or dissection. Bilateral renal scarring and atrophy. Mild enlarged prostate. No acute pulmonary consolidation 12-lead ECG ECG: sinus with non-specific ST changes Assessment & Plan Assessment 80 yo M CAD s/p complex interventions of the LAD and RCA in 2016, HTN, HLD, paroxysmal AF, and TIA admitted with chest pain: # Chest pain: etiology suspected to be atrial fibrillation with rapid ventricular response. Patient's rhythm switched to sinus prior to being admitted to the hospital. He is feeling good and back to his baseline. ECG unremarkable and troponins negative as well, making acute coronary syndrome unlikely. I educated the patient about his condition and answered his questions. See below for plan on AF and CAD. - Continue to monitor clinically # Paroxysmal AF: patient has had AF for about a year and hasn't had much episodes of them. Due to his resting sinus bradycardia into the 40s, he is appropriately not on AV bg blockers. I am also hesitant to add anti- arrhythmics (i.e. amiodarone) as the patient is not on anticoagulation. CHADSVASC score is 5(2 for age > 75, 2 for TIA, 1 for CAD), suggesting significant benefit from anticoagulation. I spent significant time with the patient and suggested that he may need a pacemaker as outpatient. Patient is seeing Dr. 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 - Patient educated to come back to the ER if he has recurrent AF - Consider pacemaker placement for tachybrady syndrome as outpatient - Avoid AV bg blockers for now - Anticoagulation discussion as outpatient with Dr. Castro # CAD s/p complex PCI of the LAD and RCA: patient doing well clinically and can do two flights of stairs without symptoms. He has severe hyperlipidemia but has been intolerant to statins about 10 years ago. While he has tried atorvastatin, he hasn't tried rosuvastatin. 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 Defer to primary team and outpatient endocrinology for management. # Urinary bladder nodule: 5mm nodule found incidentally on CT scan 06/22/2016. Suspicious for bladder cancer given advanced age and prior history of smoking. I spoke with the patient and in great detail and recommended f/u with his regular urologist (Dr. Freedman). I also printed the CT report for him and alerted Dr. Freedman in [employer] (outpatient EMR). Dispo: okay to discharge from cardiology standpoint. VTE Mechanical Devices: Intermittant Pneumatic CD Resuscitation Status: CPR: Attempt Resuscitation Copies to: Ellen Hernandez Bhrigu R MD Jun 23, 2016 13:07
--- NOTE | 2016-06-23 14:46 | PCM.DIMED ---
Sim Jaimes 06/23/16 1446: Discharge Instructions Date of Service Jun 23, 2016 Dates of Hospitalization Jun 23, 2016 at 01:18 Discharge Diagnosis Discharge Diagnosis 1. Atrial fibrillation with rapid ventricular response with bradycardia. Present on admission 2. Acute Hypotension. Present on admission 3. Acute Chest pain. Present on admission 4. Coronary artery Disease s/p drug eluting stent 5. Hyperlipidemia 6. Pituitary adenoma with testicular hypofunction, Chronic 7. Hypothyroidism 8. Benign Prostatic Hypertrophy with outflow obstruction Diet Heart Healthy Activity Limited until seen by PCP Call your provider Shortness of breath, Chest pain, Other (Palpitations, fainting) Patient Instructions - Take rosuvastatin 2.5 mg at night - Follow up at your cardiology appointment in 4 days - Follow up with your primary care physician Ellen Hernandez in 1 week - Follow up with Dr. Freedman of Urology regarding your bladder nodule. Follow-up Provider: Ellen Hernandez Follow-up with PCP in: 1 week Jewel Soni MD 06/25/16 0735: Discharge Instructions Attending's Statement The patient was seen and examined together with Dr. Jaimes on 06/23/2016 and I agree with the history, exam and plan as outlined in the note above. . Sim Jaimes Jun 23, 2016 14:46 Jewel Soni MD Jun 25, 2016 07:35
[2016-06-23] MEDS ORDERED: ROSU5TAB9 PO (14:47)
--- NOTE | 2016-06-23 15:29 | NUR ---
Discharge Pt IV's dc'd intact. Telemetry removed, tech notified. Pt discharge instructions, new medications and follow up appointments reviewed. All patient questions answered, pt voiced understanding. Pt was discharged to be transported home POV by himself. Pt belongings were gathered and sent with pt. Pt was escorted off unit by RN.
--- NOTE | 2016-06-23 19:02 | PCM.DC.MED ---
Discharge Summary Date of Service Jun 23, 2016 Dates of Hospitalization Date of Hospital Admission Jun 23, 2016 at 01:18 Date of Discharge: Jun 23, 2016 Providers: Admitting Physician: Meliton Emery MD Primary Care Physician: Ellen Hernandez Attending Physician: Meliton Emery MD Diagnosis at Time of Discharge Diagnosis at Time of Discharge 1. Atrial fibrillation with rapid ventricular response with bradycardia. Present on admission 2. Acute Hypotension. Present on admission 3. Acute Chest pain. Present on admission 4. Coronary artery Disease s/p drug eluting stent 5. Hyperlipidemia 6. Pituitary adenoma with testicular hypofunction, Chronic 7. Hypothyroidism 8. Benign Prostatic Hypertrophy with outflow obstruction Procedures XRay, CTs & MRIs X-Ray Chest Interpretation 06/22 Chest Xray Interpretation: Normal chest x ray. Interpretation / Wet Read by: Nc CT Abd / Pelvis Interpretation 06/22 CONCLUSION: No acute vascular process. Areas of parenchymal scarring in both kidneys. Correlate with history. Small mural nodule in the bladder on the left. Cystoscopy to exclude an endothelial tumor may be indicated. Mild prostatic enlargement. Reason For Study: HYPOTENSION Referring Physician: MELITON EMERY 06/23/16 Interpretation Summary 1) Normal left ventricular thickness, size, wall motion, and systolic function (EF 60-65%). 2) Normal right ventricular size and function. 3) Mild to moderate mitral regurgitatoin present. 4) Mildly dilated ascending aorta (diameter 4cm). 5) No significant change compared to the prior echo dated 07/11/2015. Date of Service: 06/22/16 2234 PROCEDURE: CT ANG CHEST/ABD/PEL W/WO CIBTRAST (PNL-7502) INDICATIONS: chest pain, hypotension 5 mm left bladder wall nodule. This could represent early bladder carcinoma. Recommend further assessment with cystoscopy as clinically warranted. Elsewhere, no aortic aneurysm or dissection. Bilateral renal scarring and atrophy. Mild enlarged prostate. No acute pulmonary consolidation Dictated by: Jarett Hawthorne M.D. on 06/23/2016 at 7:28 Approved by: Jarett Hawthorne M.D. on 06/23/2016 at 7:42 Brief History 80 yo M CAD s/p complex interventions of the LAD and RCA in 2016, HTN, HLD, paroxysmal AF, and TIA admitted with chest pain. Patient states that he was in usual state of health until yesterday when he leaned over to make his dog's bed and developed chest pain and heart racing sensations. It felt similar to his prior AF, which he has every few months. He came to the ER and was to have AF with RVR with heart rates in the 110s. Prior to being admitted to the hospital , patient's symptoms mostly resolved. He was then noted to have mild sinus bradycardia into the 40s and mildly low SBP in the 90s. BP improved with IVFs. Since being admitted to the hospital, patient feels good and back to his baseline and wants to go home. At baseline, patient states that he is active for his age and is able to climb two flights of stairs without much difficulty. He does report chronic fatigue. Denies lightheadedness or syncope. Hospital Course Reuben Powell is an 80 year old male with Coronary artery disease s/p stenting , Hypertension, Chronic Atrial fibrillation presenting to [facility] emergency department complaining of chest pain and palpitations. 1. Atrial fibrillation with rapid ventricular response with bradycardia. Present on admission -patient with history of paroxysmal atrial fibrillation however has not had difficulties since 2010. Tachy dang syndrome is a possibility.TSH was low at 0.214 but doesn't explain bradycardia. - Troponin negative x3 - Echo as above - Follow up with Cardiology in 4 days - Rosuvastatin 2.5 mg qhs 2. Acute Hypotension. Present on admission. Resolevd. - Suspect Hypovolemia given improvement with IV fluids bolus. I wonder if the patient is using nitro with his Cialis which may cause some drop in Blood pressure. Patient on chronic steroids with risk for Adrenal insufficiency. No evidence of infection 3. Acute Chest pain. Present on admission Likely related to tachycardia which is now resolved - Troponin negative 4. Coronary artery Disease s/p drug eluting stent - continue Aspirin and Plavix for antiplatelet therapy - continue Zetia (allergic to Atorvastatin) 5. Hyperlipidemia No evidence of liver dysfunction - continue Zetia 6. Pituitary adenoma with testicular hypofunction, Chronic - continue Bromocriptine - continue Hydrocortisone 20 mg daily, no indication for stress dose steroids - recommend follow up with Endocrinology as outpatient 7. Hypothyroidism - continue Synthroid 75 mcg daily, TSH 0.214 - Requires adjustment of Synthroid 8. Benign Prostatic Hypertrophy with outflow obstruction - continue Flomax 9. Bladder nodule - CT findings as above. Requires outpatient follow-up. - Follow up with Dr. Freedman of Urology Exam Vital Signs (Last) Date Time Temp Pulse Resp B/P Pulse Ox O2 Delivery O2 Flow Rate FiO2 06/23/16 12:00 36.6 45 14 127/67 94 Room Air Exam General: Alert, Oriented X3, Cooperative, No Acute Distress Head: Normocephalic, atraumatic. External ears normal. Eyes: PERRLA, EOMI. Anicteric sclerae. Mouth: Mouth Normal, Mucous Membranes Moist/[place] Neck: Neck supple with full range of motion. Chest & Lungs: Clear to auscultation bilaterally with no crackles, wheezes, or rhonchi. Cardiovascular: Regular Rate/Rhythm, Normal S1, Normal S2, No Murmurs/Rubs/ Gallops Abdomen: Non-tender, Non-distended, No masses, Normoactive bowel tones, Soft Musculoskeletal: Normal Range of Motion Extremities: No cyanosis/clubbing/edema bilaterally Neurological: Grossly Neurologically Intact, Normal Speech Test 06/22/16 22:00 06/23/16 03:30 06/23/16 14:45 White Blood Count 8.3th/mm3 (3.8-10.1) Red Blood Count 4.53mil/mm3 (4.40-5.80) Hemoglobin 14.3g/dL (13.8-17.2) Hematocrit 41.5% (41.0-50.0) Mean Corpuscular Volume 91.6fL (81-100) Mean Corpuscular Hemoglobin 31.6pg (27.0-35.0) Mean Corpuscular Hemoglobin Concent 34.5% (32.0-37.0) Red Cell Distribution Width 14.1% (12.3-15.4) Platelet Count 148bil/L (150-400) Neutrophils (%) (Auto) 48.7% (40-74) Lymphocytes (%) (Auto) 40.3% (14-46) Monocytes (%) (Auto) 7.9% (4-12) Eosinophils (%) (Auto) 2.5% (0-5) Basophils (%) (Auto) 0.5% (0-3) Prothrombin Time 10.7sec (8.1-12.5) Prothromb Time International Ratio 1.00ratio Sodium Level 141mEq/L (134-144) Potassium Level 4.6mEq/L (3.5-5.2) Chloride Level 102mEq/L (97-108) Carbon Dioxide Level 25mmol/L (18-29) Blood Urea Nitrogen 18mg/dL (8-27) Creatinine 1.28mg/dL (0.76-1.27) Estimat Glomerular Filtration Rate 57mL/min (>59) Glucose Level 114mg/dL (60-99) Calcium Level 9.2mg/dL (8.5-10.1) Magnesium Level 1.9mg/dL (1.6-2.6) Total Bilirubin 0.3mg/dL (0.0-1.2) Aspartate Amino Transf (AST/SGOT) 23U/L (0-50) Alanine Aminotransferase (ALT/SGPT) 14U/L (0-44) Alkaline Phosphatase 38U/L (25-160) Total Protein 7.0g/dL (6.4-8.4) Albumin 4.2g/dL (3.4-5.0) Thyroid Stimulating Hormone (TSH) 0.214uIU/mL (0.450-4.500) Free Thyroxine 0.89ng/dL (0.82-1.77) Hold [place] Top Tube Received (Received) Urine Color Yellow (YELLOW) Urine Appearance Clear (CLEAR,HAZY) Urine pH 5.0 (5.0-8.0) Urine Specific [place] 1.010 (1.003-1.035) Urine Protein Negativemg/dL (NEG,TRACE) Urine Glucose (UA) Negativemg/dL (NEGATIVE) Urine Ketones Negativemg/dL (NEGATIVE) Urine Occult Blood Moderate (NEGATIVE) Urine Nitrite Negative (NEGATIVE) Urine Bilirubin Negative (NEGATIVE) Urine Urobilinogen Normalmg/dL (NORMAL) Urine Leukocyte Esterase Negative (NEGATIVE) Urine RBC 11-50/hpf (0-2) Urine WBC 0-5/hpf (0-5) Urine Epithelial Cells Occasional/hpf (NONE-MOD) Urine Crystals None seen (NONE SEEN) Urine Bacteria None/hpf (NONE-FEW) Urine Hyaline Casts None/lpf (NONE) Urine Granular Casts None seen (NONE SEEN) Urine Waxy Casts None seen (NONE SEEN) Urine Red Blood Cell Casts None seen (NONE SEEN) Urine White Blood Cell Casts None seen (NONE SEEN) Urine Mucus None seen (None Seen) Urine Trichomonas None seen (NONE SEEN) Urine Yeast None (NONE SEEN) Urinalysis Comment None Urine Culture Reflexed Not indicated Troponin T < 0.010ug/L (0.0-0.011) Discharge Medications Discharge Medications Aspirin (Aspirin) 325 Mg Tablet.dr 325 MG PO AM (Reported) Aspirin (Aspirin) 81 Mg Tablet 81 MG PO DAILY (Reported) Bromocriptine Mesylate (Bromocriptine Mesylate) 2.5 Mg Tablet 2.5 TAB PO DAILY ( Reported) Clopidogrel (Clopidogrel) 75 Mg Tablet 75 MG PO DAILY (Reported) Ezetimibe (Zetia) 10 Mg Tablet 10 MG PO DAILY (Reported) Gabapentin (Gabapentin) 600 Mg Tablet 600 MG PO HS (Reported) Hydrocortisone (Hydrocortisone) 20 Mg Tablet 20 MG PO AM (Reported) Latanoprost (Latanoprost) 2.5 Ml Drops 1 GTT RIGHT_EYE HS (Reported) Levothyroxine (Levothyroxine) 75 Mcg Tablet 75 MCG PO AM (Reported) [place]-3 Acid Ethyl Esters (Lovaza) 1 Gm Capsule 1 GM PO BID (Reported) Rosuvastatin Calcium (Rosuvastatin Calcium) 5 Mg Tablet 2.5 MG PO HS Prescribed by: CHINO JAIMES DO Tamsulosin (Flomax) 0.4 Mg Capsule 0.4 MG PO BID (Reported) Miscellaneous Medications Oxymetazoline HCl (Nasal [place] Sinus) 30 Ml [place] 30 ML NS (Reported) Followup Plan Discharge Diet: Heart Healthy Discharge Activity: Limited until seen by PCP Patient Instructions - Take rosuvastatin 2.5 mg at night - Follow up at your cardiology appointment in 4 days - Follow up with your primary care physician Ellen Hernandez in 1 week - Follow up with Dr. Freedman of Urology regarding your bladder nodule. Follow-up Provider: Ellen Hernandez Follow-up with PCP in: 1 week Attending Statement The patient was seen and examined together with Dr. Jaimes on 06/23/2016 and I agree with the history, exam and plan as outlined in the note above. . copies to: Ellen Hernandez; Tasia Hager MD; Theodora Freedman MD, Andrew R Jun 23, 2016 19:02 Jewel Soni MD Jun 25, 2016 07:37
== END 2016-06-23 15:22 | disposition home or self-care (01) ==
LOC: SED 21:45 → PCC 06-23 01:18
PROVIDERS: ADMIT Hospitalist; ATTEND Hospitalist
DX: I48.0 Paroxysmal atrial fibrillation (principal); I95.89 Other hypotension; R07.89 Other chest pain; I25.10 Atherosclerotic heart disease of native coronary artery without angina pectoris; Z95.5 Presence of coronary angioplasty implant and graft; Z87.891 Personal history of nicotine dependence; E78.5 Hyperlipidemia, unspecified; D35.2 Benign neoplasm of pituitary gland; E29.1 Testicular hypofunction; E03.9 Hypothyroidism, unspecified; N40.1 Benign prostatic hyperplasia with lower urinary tract symptoms; N13.8 Other obstructive and reflux uropathy; N32.9 Bladder disorder, unspecified
CPT/HCPCS: 36415; 71010; 71275; 74174; 80053; 81000; 83735; 84439; 84443; 84484; 85025; 85610; 93005; 96360; 99291; C8929; G0378; J7030; Q9967

== ENCOUNTER 2016-07-09 00:34 | Day surgery (SDC) | payer MEDICARE, OTHER ==
[~2016-07-09] VITALS: Ht 177.8 cm; Wt 94.0 kg
[2016-07-09] VITALS (14 sets, daily range): BP systolic 101–147; BP diastolic 57–88; PULSE 54–73; RESP 12–18; O2SAT 92–97
[~2016-07-09 00:34] MED LIST changes: -AZIT250T4 PO; -CLOP75TA28 PO; -EZET10TA PO; +OXYM30SP18 NS; +ROSU5TAB9 PO; -TAM75UDCAP PO
[2016-07-09] MEDS ORDERED: CeFAZolin Inj 2 GM in IV Premix 1 EACH IV ONE (06:45)
[2016-07-09] MEDS: 0.9% Sodium Chloride 1,000 ML IV SCH ×4 (06:45→20:00)
--- NOTE | 2016-07-09 07:00 | NUR ---
ADMISSION NOTE MALE PT ADMITTED FOR PACEMAKER INSERTION. DISCUSSED PLAN OF CARE WITH PT AND . SEE ADMIT AND FLOW SHEET
[2016-07-09 07:38] LABS: BASOPHILS % (AUTO) 0.6 % (0-3); EOSINOPHILS % (AUTO) 4.3 % (0-5); MONOCYTES % (AUTO) 8.4 % (4-12); Mean Corpuscular Hemoglobin 30.8 pg (27.0-35.0); Mean Corpuscular Volume 89.9 fL (81-100); NEUTROPHILS % (AUTO) 38.6 % (40-74); Platelet Count 155 bil/L (150-400)
[2016-07-09] MEDS ORDERED: Bupivacaine-MPF 0.5% 30 mL Inj ONE (08:15)
[2016-07-09] MEDS ORDERED: 0.9% Sodium Chloride 250 ML ONE (08:15)
[2016-07-09] MEDS ORDERED: Heparin 1,000 Unit/mL 10 mL Inj ONE (08:16)
[2016-07-09] MEDS ORDERED: Hydrocortisone 50 mg/mL 2 mL Inj ONE ×2 (08:52)
[2016-07-09] MEDS ORDERED: fentaNYL-PF 50 mCg/mL 2 mL Inj ONE (09:17)
--- NOTE | 2016-07-09 10:30 | NUR ---
POST PROCEDURE NOTE RETURNED FROM DATA ARCHITECT. SEE FLOW SHEET
[2016-07-09] MEDS ORDERED: Ondansetron 2 mg/mL 2 mL Inj IVPUSH PRN (10:35)
--- NOTE | 2016-07-09 11:45 | OP ---
[address] [address] OPERATIVE REPORT PATIENT: HUGH IRVIN : 1935 MR#: [id number] ADMIT: 07/09/2016 JOB ID: [id number] DATE OF SURGERY: 07/09/2016 PREOPERATIVE DIAGNOSIS(ES): Sick sinus syndrome. POSTOPERATIVE DIAGNOSIS(ES): Sick sinus syndrome. PROCEDURES PERFORMED: 1. Dual-chamber pacemaker implantation. 2. Fluoroscopy. SURGEON: Jewel Toure M.D., electrophysiology attending. COUNTER CONTROL OPERATOR: John Valdez IMPLANTED DEVICE: 1. [employer] pulse generator, model XY0147, serial #[id number]. 2. Right atrial lead [employer], 2088TC, 52 cm, serial #[id number]. 3. RV lead [employer], 2088TC, 58 cm, serial #[id number]. ANESTHESIA: Bolus dosing of Versed and fentanyl were utilized for an appropriate level of sedation. INDICATION: The patient is a pleasant 81-year-old man with sick sinus syndrome and paroxysmal atrial fibrillation. After discussion of risks and benefits of pacemaker implantation, he opted to proceed. PROCEDURAL DESCRIPTION: Following informed consent, the patient was taken to the EP laboratory in a fasting nonsedated state where he was prepped and draped in usual sterile fashion. The left infraclavicular regions were infiltrated with 40 cc of a 50/50 mixture bupivacaine and lidocaine. Once adequate anesthesia had been achieved, a 3 cm transverse incision was performed 2 cm below the clavicle. Dissection was carried to the pectoralis fascia, and a pocket was then fashioned using combination of electrocautery and blunt dissection. Once adequate hemostasis was achieved, access to the left axillary vein was gotten over the first rib with a micropuncture needle twice to deploy two 0.035, 3 mm J guidewires. Over the first of these, a 6-Nepalese tear-away sheath was advanced. Once the guidewire was removed, an active fixation lead was advanced to the RV outflow tract and ultimately the RV apex. The lead was affixed in position using its associated active fixation screw. The lead was connected to the external analyzer and observed to sense R waves, impedance, capture threshold. It was checked at 10 V, and there was no evidence of diaphragmatic stimulation. Attention was now paid to placement of the right atrial lead. Over the other previously deployed J guidewire, another 6-Nepalese tear-away sheath was advanced. Once the guidewire was removed, active fixation lead was advanced right atrial appendage. It was affixed in position using associated active fixation screw. The lead was connected to external analyzer and demonstrated appropriately sensed P waves, impedance, capture threshold. It was checked at 10 V, and there is no evidence of diaphragmatic stimulation. Once the position and redundancy of the leads were confirmed with multiple fluoroscopic views, the leads were anchored to the prepectoral fascia using their associated anchoring sleeves and two Ethibond sutures. The pocket was then copiously irrigated with antibiotic solution. The leads were connected to a generator. The generator was affixed to the floor of the pocket using 1-0 Ti-Cron suture. The incision was then closed with running layers of absorbable suture. The wound was dressed with skin adhesive and a small dressing. At the end of the procedure, the needle, sponge, and instrument counts were all correct. COMPLICATIONS: None. ESTIMATED BLOOD LOSS: Negligible. DEVICE MEASURED DATA: 1. Right atrial lead 3.1 mV, 490 ohms, 0.75 V at 0.4 msec. 2. RV lead 10.4 mV, 630 ohms, 0.5 V at 0.4 msec. FINAL PROGRAM PARAMETERS: DDDR 65 to 130 beats per minute. IMPRESSION: Successful dual-chamber pacemaker implantation. PLAN: 1. Stat portable chest x-ray. 2. PA and lateral chest x-ray in the morning. 3. Device interrogation in the morning. 4. IV Ancef through tomorrow. 5. Keflex x7 days. 6. Wound check one week. ATTENDING STATEMENT: Juanjose Weinstein MD, electrophysiology attending, was present for and supervised/performed all aspects of this procedure.
--- NOTE | 2016-07-09 12:01 | DRSVH ---
PROCEDURE: X-RAY CHEST ONE VIEW, PORTABLE ([id number]) INDICATIONS: For new leads placed TECHNIQUE: One view of the chest was acquired. COMPARISON: [facility], CR, XR CHEST 1VW (PORTABLE), 06/22/2016, 21:56. FINDINGS: Surgical changes and devices: Dual chamber cardiac pacer has been placed. Lungs and pleura: No pleural effusions or pneumothorax. Lungs are clear. Mediastinum: Mediastinal contours appear normal. Heart size is normal. Bones and chest wall: No suspicious bony lesions. Overlying soft tissues appear unremarkable. IMPRESSION: No immediate complications status post cardiac pacemaker placement. Dictated by: Lee TERRELL Interpreted: Latricia Monroe MD on 07/09/2016 at 12:00 Transcribed by: FRANCESCA on 07/09/2016 at 12:01 Approved by: Latricia Monroe M.D. on 07/09/2016 at 17:28
--- NOTE | 2016-07-09 13:00 | NUR ---
TRANSFER NOTE TO [facility], SITE WITH NO BLEEDING OR SWELLING, OR PAIN. REPORT GIVEN
[2016-07-09] MEDS: CeFAZolin Inj 1 GM in IV Premix 1 EACH IV SCH ×2 (18:15→23:41)
--- NOTE | 2016-07-09 18:46 | NUR ---
ADMIT TO [facility] Report received from LINDY Colon in [facility]. Patient arrived to unit in stable condition w/ pacer site C/D/I, no swelling or pain reported. He arrives on room air, telemetry placed, residential monitor notified. He denies any CP or dyspnea. Tolerating PO intake, uses urinal at bedside. Will continue to monitor vitals and pacer site.
[2016-07-09] MEDS ORDERED: diphenhydrAMINE 25 mg Capsule PO PRN (20:10)
[2016-07-09 20:21] LABS: APPEARANCE,URINE CLEAR (CLEAR,HAZY); COLOR,URINE YELLOW (YELLOW)
[2016-07-09 20:22] LABS: OCCULT BLOOD,URINE MODERATE (NEGATIVE); UROBILINOGEN,URINE NORMAL (NORMAL)
[2016-07-10] MEDS: 0.9% Sodium Chloride 1,000 ML IV SCH ×2 (02:30→02:31)
[2016-07-10 03:18] VITALS: BP 109/64; PULSE 65; RESP 17; O2SAT 93
--- NOTE | 2016-07-10 05:02 | NUR ---
Sleeping pill/ Cardiac/ allergy Pt states he take OTC sleeping pill @ night- requesting dose at HS- Dr. Garrido made aware- 1x order received for PO Benadryl. Pacer site asymptomatic, Left arm precautions reviewed- arm remains in sling. Tele Paced in the 60s- BP stable. Order sent to pharmacy for pt to start on Metoprolol- per records pt has allergy to Metoprolol, when reviewed with pt he is unsure of allergy. Not left for day pharmacist- will pass on to day RN to alert cardiology in AM.
[2016-07-10] MEDS: MeTOProlol XL 50 mg ER24 Tablet PO SCH (08:30)
[2016-07-10] MEDS ORDERED: Hydrocortisone 10 mg Tablet PO SCH (08:30)
[2016-07-10 08:34] VITALS: BP 115/70; PULSE 65; RESP 14; O2SAT 95
--- NOTE | 2016-07-10 09:03 | PCM.DIMED ---
Discharge Instructions Date of Service Jul 10, 2016 Dates of Hospitalization Discharge Diagnosis Discharge Diagnosis Tachy /Héctor Syndrome Symptomatic Bradycardia Paroxysmal Atrial Fibrillation CAD Hypertension Diet Heart Healthy Activity Other (Do not extend left elbow high above shoulder for one month. Do not lift , push or pull more than 10 lbs with the left arm for one month.) Call your provider Fever or Chills, Bleeding, Excessive diarrhea Patient Instructions Follow-up in: 1 week Mid-level Provider (F9): Siddhartha Roth PA-C Follow-up with Mid-level in: 6 weeks Siddhartha Roth PA-C Jul 10, 2016 09:03
--- NOTE | 2016-07-10 09:10 | DRSVH ---
PROCEDURE: X-RAY CHEST, TWO VIEWS ([id number]) INDICATIONS: For new lead placement TECHNIQUE: 2 views of the chest were acquired. COMPARISON: [facility], CR, XR CHEST 1VW (PORTABLE), 07/09/2016, 11:01. FINDINGS: Surgical changes and devices: Stable left cardiac pacer. Lungs and pleura: No pleural effusions or pneumothorax. Lungs are clear. Mediastinum: Mediastinal contours are normal. Heart size is normal. Bones and chest wall: No suspicious bony abnormalities. Soft tissues appear unremarkable. IMPRESSION: Stable chest post pacer placement. Dictated by: Lee Huff RRA Interpreted: Theodora Rios MD on 07/10/2016 at 9:09 Transcribed by: SANCHEZ on 07/10/2016 at 9:09 Approved by: Theodora Rios MD, PhD on 07/10/2016 at 17:16
[2016-07-10] MEDS ORDERED: METO-272 PO (09:16)
[2016-07-10] MEDS ORDERED: CEPH-512 PO (09:16)
--- NOTE | 2016-07-10 10:01 | NUR ---
Social Work Note - Initial Assessment/Discharge: D/A: See Initial Assessment, The Pt is an 81 y/o male that was admitted for sick sinus syndrome, as per EMR. The Pt's PCP is TERRELL Hernandez and her primary insurance is Medicare with [employer] as her supplement, no LTC or VA benefits. EMR reviewed, SW met with the Pt at bedside to explain role and discuss discharge planning. The Pt lives independently with his in a one story home in [place]. His is his DPOA, paperwork requested. The Pt continues to drive, does not use any DME, and does not have a HH/SNF history. Family to provide transportation home. He is not a caregiver for anyone. No SW needs identified, SW to follow if needs arise. P: The Pt will discharge home today with family providing POV transportation. No SW needs identified, SW to follow if needs arise. JULEE Alfaro [employer] Sales Associate JULEE Willis Addendum: 07/10/16 at 1005 by CHAKA DANG Amended: Links added.
--- NOTE | 2016-07-10 11:38 | NUR ---
Discharge Pt discharged to his home. Transportation by his nephew. Pt IV's dc'd intact. Telemetry removed and tech notified. Pt's discharge instructions, new medications and follow up appointments were reviewed. All questions were answered and pt voiced understanding. Pt's belongings were gathered for transportation with pt. Pt was escorted by PUBLIC RELATIONS ACCOUNT SUPERVISOR off unit to his nephews vehicle.
--- NOTE | 2016-07-10 14:18 | DIS ---
[address] [address] DISCHARGE SUMMARY PATIENT: HUGH IRVIN : 1935 MR#: [id number] ADMIT: 07/09/2016 JOB ID: [id number] DIS: 07/10/2016 REASON FOR ADMISSION: Pacemaker implant. CHIEF COMPLAINT: Symptomatic bradycardia. BRIEF HISTORY: The patient was a pleasant 80-year-old man with paroxysmal atrial fibrillation and tachycardia/bradycardia syndrome. He has had symptomatic bradycardia which required discontinuation of metoprolol. Cardiac pacemaker was recommended and he wished to proceed. HOSPITAL COURSE: The patient was admitted to the [facility] and taken to the animal laboratory technician, where he received a dual-chamber cardiac pacemaker without incident. He was taken back to the [facility] for recovery from sedation and then transferred up to the second floor telemetry for overnight care and observation. He did well and in the morning he was ambulatory without dizziness or difficulty. His chest x-ray showed good lead positions and no pneumothorax. Device evaluation showed excellent capture and sensing thresholds and the device site was closed and dry. There was no hematoma. He felt well for discharge home. He denied any lightheadedness, chest pain, or dyspnea. DISPOSITION: The patient was discharged home in good condition with a followup appointment at the [facility] Cardiology office in one week. He was asked not to extend his left elbow above his left shoulder for one month and not to lift, push, or pull more than 10 pounds with the left arm for one month. He will follow his heart healthy diet and take medications as prescribed. DISCHARGE MEDICATIONS: 1. Cephalexin 500 mg b.i.d. 2. Metoprolol succinate 50 mg b.i.d. 3. Aspirin 325 mg daily. 4. Bromocryptine 2.5 mg daily. 5. Gabapentin 600 mg q.h.s. 6. Hydrocortisone 20 mg each a.m. 7. Latanoprost eyedrops one drop in the right eye at bedtime. 8. Levothyroxine 75 mcg daily. 9. [place]-3 capsule 2 g b.i.d. 10. Oxymetazoline nasal spray as needed. 11. Simvastatin 2.5 mg q.h.s. 12. Tamsulosin 0.4 mg b.i.d. FINAL DIAGNOSES: 1. Tachycardia-bradycardia syndrome. 2. Paroxysmal atrial fibrillation. 3. Symptomatic bradycardia. 4. Coronary artery disease. 5. Hypertension.
== END 2016-07-10 11:27 | disposition home or self-care (01) ==
LOC: SOUO 00:34 → PCC 13:43 → SOUO 07-10 11:27
PROVIDERS: ATTEND Internal Medicine Cardiovascular Disease
DX: I49.5 Sick sinus syndrome (principal); I48.0 Paroxysmal atrial fibrillation; I25.10 Atherosclerotic heart disease of native coronary artery without angina pectoris; I25.82 Chronic total occlusion of coronary artery; C67.2 Malignant neoplasm of lateral wall of bladder; I10 Essential (primary) hypertension; E78.5 Hyperlipidemia, unspecified; N40.1 Benign prostatic hyperplasia with lower urinary tract symptoms; R39.14 Feeling of incomplete bladder emptying; E23.0 Hypopituitarism; Z79.82 Long term (current) use of aspirin; Z87.891 Personal history of nicotine dependence
CPT/HCPCS: 33208; 36415; 71010; 71020; 80048; 81000; 85025; 85610; 93005; 99152; 99153; C1769; C1785; C1892; C1898; J0690; J1644; J1720; J2250; J3010; J7050

== ENCOUNTER 2016-08-08 05:47 | Day surgery (SDC) | payer MEDICARE, OTHER ==
[~2016-08-08] VITALS: Ht 177.8 cm; Wt 95.0 kg
[2016-08-08] VITALS (11 sets, daily range): BP systolic 89–114; BP diastolic 57–74; PULSE 65–68; RESP 6–18; O2SAT 94–98
[~2016-08-08 05:47] MED LIST changes: +CEPH-512 PO; +Lactated Ringer's 1,000 ML IV SCH; +METO-272 PO
[2016-08-08] MEDS ORDERED: CeFAZolin Inj 2 gm / 50mL D5W IV ONE (05:54)
[2016-08-08] MEDS ORDERED: CeFAZolin 2 Gm/50 mL D5W IV Premix IV ONE (06:00)
[2016-08-08] MEDS ORDERED: Lactated Ringer's 1,000 ML IV ONE ×2 (06:07→08:36)
--- NOTE | 2016-08-08 07:10 | PCM.HPANE ---
Patient Data Surgeon Admitting Provider: Attending Provider:Theodora Freedman MD Primary Care Physician:Ellen Hernandez Other Provider:Tish Ying Anesthesia Reason for Visit Bladder Tumor Ht/WT & BMI Height (Feet): 5 Height (Inches): 10.00 Weight (Kilograms): 95 Body Mass Index 29.00 Allergies Coded Allergies: dabigatran etexilate (Verified Allergy, Severe, headache, 07/09/16) gemfibrozil (Verified Allergy, Intermediate, 07/09/16) pt does not remember this as an allergy atorvastatin (Verified Allergy, Mild, 07/09/16) metoprolol (Verified Allergy, Mild, 07/09/16) Past Anesthesia History Anesthesia History: Denies:: Anesthesia Reactions, Fam Anesthesia Reaction Diabetes History Hx Diabetes?: No MRSA MRSA: No Medications Blood Thinner: Aspirin Hypertension Medication: Yes Home Meds Incl Beta Gustavo: Yes Date Beta Gustavo Taken: Aug 08, 2016 Time Beta Gustavo Taken: 05:00 Active Scripts Cephalexin (Keflex)500 Mg [id number] Mg PO BID #14 CAPSULE Ref 0 Prov:Siddhartha Roth PA-C 07/10/16 Metoprolol Succinate ER 50 Mg Tab.er.24h50 Mg PO DAILY #30 TABLET Ref 6 Prov:Siddhartha Roth PA-C 07/10/16 Rosuvastatin Calcium 5 Mg Tablet2.5 Mg PO HS #30 TABLET Prov:Sim Jaimes 06/23/16 Reported Medications Oxymetazoline HCl (Nasal Romulus Sinus)30 Ml Spray30 Ml NS 06/23/16 Hydrocortisone 20 Mg Edcyry49 Mg PO AM 07/27/14 Bromocriptine Mesylate 2.5 Mg Tablet2.5 Tab PO DAILY 07/27/14 Levothyroxine 75 Mcg Zimmlk19 Mcg PO AM 30 Days Ref 0 07/27/14 [place]-3 Acid Ethyl Esters (Lovaza)1 Gm Capsule2 Gm PO BID #30 CAPSULE Ref 0 07/27/14 Latanoprost 2.5 Ml Drops1 Gtt RIGHT_EYE HS #1 BOTTLE 07/27/14 Gabapentin 600 Mg [id number] Mg PO HS 30 Days Ref 0 07/27/14 Tamsulosin (Flomax)0.4 Mg Capsule0.4 Mg PO BID 30 Days Ref 0 07/27/14 Aspirin 325 Mg Tablet.dr325 Mg PO AM #1 BOTTLE Ref 0 07/27/14 History History of ENT Problems?: Yes HEENT History: Positive for:: Cataracts (takes drops at night, removed) Sinus Problem ("some") Denies:: Dysphagia Hx of Heart Problems?: Yes Cardiovascular History: Positive for:: Cardiac Surgery (stents, pacemaker) Chest Pain Hypertension Irregular Heartbeat (hx atrial fibrillation with RVR) Denies:: Congestive Heart Failure Edema Heart Murmur Pacemaker Thrombophlebitis Hx of Respiratory Problem?: Yes Respiratory History: Positive for:: Dyspnea Denies:: Asthma COPD Chest Surgery Emphysema Hemoptysis Oxygen Administration Pneumonia Tuberculosis Use of C-PAP Machine Hx Neurologic Problems?: Yes Neurological History: Positive for:: TIA (past hx of - no residual) Denies:: Alzheimer's Disease CVA Dementia Dizziness Headaches Parkinson's Disease Seizures Hx of GI Problems?: No Gastrointestinal History: Denies:: Diverticulitis Gastroesphageal Reflux Gastrointestinal Bleeding Heartburn Hepatitis Hiatal Hernia Rectal Bleeding Hx of Problems?: Yes Genitourinary History: Denies:: HX of Hemodialysis Kidney Stones Urinary Tract Infection HX of Peritoneal Dialysis: No Other Pertinent History: bladder tumor current admission problem Male Hx: Positive for:: Prostate Problems (BPH) Scrotal Mass (a cyst was found on one testicle) Denies:: Testicular Surgery Skin History: Denies:: History Skin Disorders? Pressure Ulcers Hx Musculoskeletal Problems?: Yes Musculoskeletal History: Positive for:: Back Injury (low back pain) Musculoskeletal Trauma (orif right ankle) Osteoarthritis Denies:: Joint Replacement Hx of Psycho/Social Problems?: No Psycho Social History: Denies:: Anxiety Bipolar Disorder Hx Depression Suicide Attempt Hx Surgeries?: Yes (appendectomy/ankle replacement, pacemaker) Hx Any Other Health Problems?: Yes Other History: Positive for:: Cancer (bladder tumor) Endocrine Disease (pituitary tumor, panhypopituitarism) Hospitalization (surgeries/stent placement/TIA) Denies:: Thyroid Disease History Blood Transfusions: Denies:: Blood Transfuse Reaction Blood Transfusions Hx Diabetes: No Hx Alcohol Use: Yes (very little )Hx Substance Use: No Smoking Status: Former Smoker Have You Smoked inLast 12 mo: No Stop/Bang S-Snoring: Do You Snore Loudly: No T-Tired: feel tired, fatigued: Yes O-Obsered: Observed not breath: No P-Blood Pressure: treated: No B- Body Mass Index > 35 kg/m2: No A- Age over 50: Yes N- Neck Large Circumference: No G- Gender Male: Yes HELENA Total Score: 3 HELENA Risk Assessment: Low Risk, <3 Yes Risk Assessment Category Category 1A: Patient has history of documented sleep apnea, and HAS NOT received any narcotic, sedative or anesthesia administration during this stay. Category 1B: Patient has history of documented sleep apnea, and HAS received any narcotic , sedative or anesthesia administration during this stay Category 2: Patient has SUSPECTED Obstructive Sleep Apnea, and HAS received any narcotic , sedative or anesthesia administration during this stay. Category 3: Patient has SUSPECTED Obstructive Sleep Apnea and HAS NOT received narcotic, sedative or anesthesia administration during this stay. Category 4: Outpatient in Procedural Areas with known sleep apnea or who screen positive for High Risk via the STOP/BANG questionnaire. Exam Exam Vital Signs Vital Signs Date Time Temp Pulse Resp B/P Pulse Ox O2 Delivery O2 Flow Rate FiO2 08/08/16 06:08 35.5 65 18 105/61 96 Room Air General Appearance: Alert, Oriented X3, Cooperative, No Acute Distress HEENT/AIRWAY: MP 2, Neck Movement (FROM), Mouth Opening (3FB), Other (teeth intact) Lungs: Normal Air Movement Heart: Exam Unremarkable Meds/Labs/Diagnostics Admission Meds Current Medications Lactated Ringer's (Lr) 1,000 ml @ ud STK-MED ONCE IV Last administered on 08/08t 06:07; Start 08/08/16 at 06:07; Stop 08/08/16 at 06:08; Status DC Plan Impression Patient chart reviewed, patient interviewed and anesthestic plan with risks, benefits, and alternatives discussed, and informed consent obtained. ASA Physical Status: ASA3 Severe Disease (pacemaker, panhypopituitarism, ) Anesthetic Plan: GA Bene/Risks/Altern/Consents: Yes HP Complete Prior to Induction: Yes Ronny Zamora MD Aug 08, 2016 07:10
[2016-08-08] MEDS ORDERED: Belladonna Alk-Opium 60 mg Rectal Suppository RECTAL ONE (07:11)
[2016-08-08] MEDS ORDERED: Lactated Ringer's 1,000 ML IV SCH (07:50)
[2016-08-08] MEDS ORDERED: EPHEDrine Sulfate 50 mg/mL Inj IVPUSH PRN (07:50)
[2016-08-08] MEDS ORDERED: HYDROmorphone 1 mg/mL Inj IVPUSH PRN (07:50)
[2016-08-08] MEDS ORDERED: Albuterol-Ipratropium 3 mL Inhalation Solution NEB PRN (07:50)
[2016-08-08] MEDS ORDERED: Dexamethasone 4 mg/mL Inj IVPUSH PRN (07:50)
[2016-08-08] MEDS ORDERED: Ondansetron 2 mg/mL 2 mL Inj IVPUSH PRN (07:50)
[2016-08-08] MEDS ORDERED: fentaNYL-PF 50 mCg/mL 2 mL Inj IVPUSH PRN (07:50)
[2016-08-08] MEDS ORDERED: Phenylephrine 10,000 mCg/mL Inj IVPUSH PRN (07:50)
[2016-08-08] MEDS ORDERED: MetoCLOpramide 5 mg/mL 2 mL Inj IVPUSH PRN (07:50)
[2016-08-08] MEDS ORDERED: Lactated Ringer's 500 ML IV PRN (07:50)
[2016-08-08] MEDS ORDERED: HYDROcodone-APAP 5-325 mg Tablet PO PRN (08:15)
--- NOTE | 2016-08-08 08:25 | PCM.ANEP1 ---
Post Anesthesia Phase 1 PACU Phase 1 Assessment Vital Signs Vital Signs Date Time Temp Pulse Resp B/P Pulse Ox O2 Delivery O2 Flow Rate FiO2 08/08/16 08:15 65 7 100/65 97 Simple Mask 8 08/08/16 08:10 65 7 89/59 98 Simple Mask 8 08/08/16 08:05 36.4 65 6 90/57 98 Simple Mask 8 08/08/16 06:08 35.5 65 18 105/61 96 Room Air Anesthetic Administered: GA Level of Alertness: Drowsy, not talking Pain: No Nausea or Vomiting: No Airway Device: Oralpharangeal Airway Oxygen Delivery: Simple Mask Lungs: Normal Air Movement Ronny Zamora MD Aug 08, 2016 08:25
--- NOTE | 2016-08-08 08:25 | PCM.ANEP2 ---
Post Anesthesia Evaluation ASA/CMS Post Anesthesia VS in Patient's Normal Range?: Yes Resp Stable; Airway Patent?: Yes CV Function & Hydration Stable: Yes Mental Status Recovered?: Yes Pain control Satisfactory?: Yes N/V Control Satisfactory?: Yes Ronny Zamora MD Aug 08, 2016 08:25
[2016-08-08] MEDS ORDERED: Belladonna Alk-Opium 60 mg Rectal Suppository RECTAL SCH (08:30)
--- NOTE | 2016-08-08 09:37 | OP ---
[address] [address] OPERATIVE REPORT PATIENT: HUGH IRVIN : 1935 MR#: [id number] ADMIT: 08/08/2016 JOB ID: [id number] DATE OF SURGERY: 08/08/2016 SURGEON: Theodora Freedman MD PREOPERATIVE DIAGNOSIS(ES): Transitional cell carcinoma of the bladder. POSTOPERATIVE DIAGNOSIS(ES): Transitional cell carcinoma of the bladder. PROCEDURES: Cystoscopy, bladder biopsy and transurethral resection of bladder tumor medium. ANESTHESIA: General anesthetic. DESCRIPTION OF PROCEDURE: Under general anesthetic, the patient was placed in the lithotomy position. Genitalia prepped and draped in a sterile manner. A 22-Slovak cystoscope was introduced through a normal anterior urethra. Located on the left side wall of the bladder was a 2 x 2.5 cm papillary tumor. [employer]er [employer] Worker biopsies were taken using the cup biopsy forceps. The urethra was then dilated to 30-Slovak with Brittney sounds. A 26-Slovak Perez type resectoscope was introduced into the bladder and the remainder of the tumor resected and the base cauterized. After achieving hemostasis, it was elected not to leave a Page catheter in place. The patient tolerated the procedure well. Estimated blood loss less than 5 cc. The patient left the operating room in good condition under light anesthesia. A B and O suppository was given for postoperative analgesia.
[2016-08-08] MEDS ORDERED: fentaNYL-PF 50 mCg/mL 2 mL Inj ONE (10:00)
[2016-08-08] MEDS ORDERED: Ondansetron 2 mg/mL 2 mL Inj ONE (11:50)
[2016-08-08] MEDS ORDERED: Lidocaine PF 1% 30 mL Inj ONE (11:50)
[2016-08-08] MEDS ORDERED: Propofol 10,000 mCg/mL 20 mL Inj ONE (11:50)
--- NOTE | 2016-08-09 15:37 | PATH ---
SURGICAL PATHOLOGY Attending Physician:Theodora Freedman MD () CASE STATUS: Signed Out PATIENT NAME: HUGH IRVIN PID: [id number] : 1935 DATE COLLECTED:08/08/2016 15:44 SPECIMEN: Bladder, Biopsy CLINICAL HISTORY: BLADDER TUMOR 1). LEFT LATERAL WALL BLADDER TUMORS FINAL DIAGNOSIS: Bladder, Left Lateral Wall Tumor, Biopsy: High-grade papillary urothelial carcinoma, noninvasive. Negative for lamina propria invasion. Muscularis propria not present. ICD10 C67.2 GROSS DESCRIPTION: The specimen is received in one formalin filled container labeled with the patient's name, sublabeled "left lateral wall bladder tumor" and consists of 4 portions of tissue which aggregate to 0.5 x 0.5 x 0.4 CM. The specimen is entirely submitted in one cassette. 08/08/2016 [facility] ICD-9 CODES: CPT CODES: 1: 31836 Electronically Signed Out Mary Beth Jones MD [facility] Pathology [facility] [address], [place] [address] Technical component performed at [facility] [address], [place], [address]
== END 2016-08-08 23:59 | disposition home or self-care (01) ==
LOC: SAS 05:47
PROVIDERS: ATTEND Urology
DX: C67.2 Malignant neoplasm of lateral wall of bladder (principal); I25.10 Atherosclerotic heart disease of native coronary artery without angina pectoris; E78.5 Hyperlipidemia, unspecified; I10 Essential (primary) hypertension; N40.1 Benign prostatic hyperplasia with lower urinary tract symptoms; R33.9 Retention of urine, unspecified; I49.5 Sick sinus syndrome; I48.0 Paroxysmal atrial fibrillation; I49.9 Cardiac arrhythmia, unspecified; E22.9 Hyperfunction of pituitary gland, unspecified; Z95.0 Presence of cardiac pacemaker; Z79.82 Long term (current) use of aspirin
CPT/HCPCS: 52235; 88305; J2405; J3010; J7120